=== PATIENT | male | born 1990 | race African-American/Black ===

== ENCOUNTER 2022-08-22 14:11 | Emergency (ER) | payer OTHER, SELFPAY ==
[2022-08-22 14:16] VITALS: BP 130/76; PULSE 86; RESP 18; TEMP 37.2; O2SAT 100
--- NOTE | 2022-08-22 15:09 | ED.URI ---
HPI - URI/Sore Throat General Chief Complaint: Upper Respiratory Infection Stated Complaint: Sore Throat Source: patient and RN notes reviewed History of Present Illness HPI Narrative: 31-year-old male presents urgent care with complaints of sore throat times 2-3 days. Patient denies any ear pain, fevers, chills, vomiting, diarrhea, shortness of breath. Patient has been taking ibuprofen and Tylenol at home with moderate relief. Related Data Home Medications Medication Instructions Recorded Confirmed fluoxetine 20 mg capsule mg 08/22/22 trazodone 50 mg tablet mg 08/22/22 Allergies Allergy/AdvReac Type Severity Reaction Status Date / Time No Known Allergies Allergy Verified 08/22/22 14:59 Review of Systems Review of Systems: CONSTITUTIONAL: Denies fever, chills, or sweats. EYES: Denies visual changes, redness, or discharge. ENT: sore throat CARDIOVASCULAR: Denies chest pain, palpitations, or edema. RESPIRATORY: Denies cough or dyspnea. GASTROINTESTINAL: Denies abdominal pain, nausea, vomiting, or diarrhea. GENITOURINARY: Denies dysuria or hematuria. SKIN: Denies rash or itching. MUSCULOSKELETAL: Denies back pain, joint pain, or myalgia. NEUROLOGIC: Denies headache, numbness, or weakness. PMFSH Comments At the time of my signature, I reviewed and agree with the nursing past medical, surgical, social, and family history. There is no relevant family history pertinent to the patient complaint. Exam Narrative: GENERAL: This is a well-nourished, well-developed patient, in no apparent distress. HEAD: normocephalic, atraumatic. EYES: PERRL. Sclera clear/white. Vision is grossly intact. EARS: External ears normal, auditory canals clear and without drainage, TMs normal without perforation. Hearing grossly intact. NOSE: External nose normal with no obvious nasal discharge, nares without redness, no rhinorrhea. THROAT: Mucous membranes moist, posterior pharynx erythemic with white exudate. Tonsils 2+ bilaterally.. NECK: Neck supple, non-tender without lymphadenopathy, masses or thyromegaly. CARDIOVASCULAR: Regular rate and rhythm without murmurs, gallops, or rubs. RESPIRATORY: Clear to auscultation. Breath sounds equal bilaterally. No wheezes, rales, or rhonchi. GASTROINTESTINAL: Abdomen soft, non-tender, nondistended. Bowel sounds are active. No hepato-splenomegaly, or palpable masses. No guarding. SKIN: warm, intact with no suspicious lesions or rash, good texture and turgor. NEURO: awake, alert, and oriented to person, place and time. There were no obvious focal neurologic abnormalities. Course Course Level of Care: Express Care Visit Vital Signs Vital signs: Vital Signs Temperature 98.9 F 08/22/22 14:16 Pulse Rate 86 08/22/22 14:16 Respiratory Rate 18 08/22/22 14:16 Blood Pressure 130/76 08/22/22 14:16 Pulse Oximetry 100 08/22/22 14:16 Oxygen Delivery Room Air 08/22/22 14:16 Temperature 98.9 F 08/22/22 14:16 Pulse Rate 86 08/22/22 14:16 Respiratory Rate 18 08/22/22 14:16 Blood Pressure 130/76 08/22/22 14:16 Pulse Oximetry 100 08/22/22 14:16 Oxygen Delivery Room Air 08/22/22 14:16 Reviewed MDM - URI/Sore Throat MDM Narrative Medical decision making narrative: After 24 hours on antibiotics throw tooth brush away and start using a new one. Do not share drinks. Take Motrin alternating with Tylenol for pain and fever alternating every 4 hours. Increase fluids, avoid caffeine. Follow up with Primary provider if not getting better this week Differential Diagnosis Differential diagnosis: Likely upper respiratory infection, viral infection and pharyngitis Lab Data Attestation: I reviewed the patient's lab results. Labs: Strep Screen Positive Group A Strep *(Reference Range: Negative)* Critical Care Time Critical Care Time Critical Care Time: No Discharge Plan Discharge Clinical Impression:
== END 2022-08-22 15:10 | disposition home or self-care (01) ==
PROVIDERS: Emergency Provider Nurse Practitioner Family; PCP Emergency Medicine
DX: J02.0 Streptococcal pharyngitis (principal)
CPT/HCPCS: 87880; 99213; G0463

== ENCOUNTER 2022-11-05 09:11 | Emergency (ER) | payer OTHER, SELFPAY ==
[2022-11-05 09:24] VITALS: BP 125/77; PULSE 91; RESP 20; TEMP 36.6; O2SAT 98
--- NOTE | 2022-11-05 10:10 | ED.GENADULT ---
HPI - General Adult General Chief complaint: Upper Respiratory Infection Stated complaint: cold/flu Time Seen by Provider: 11/05/22 10:10 Source: patient, RN notes reviewed and old records reviewed Mode of arrival: ambulatory Limitations: no limitations History of Present Illness HPI narrative: 32-year-old male presents to [facility] care with complaints of body aches, headache, sore throat since Saturday, reports that he is unsure if fevers. Patient states that he had strep throat in August and was treated with antibiotics. Patient reports that he did home COVID test which was negative. He reports that he has been taking OTC Mucinex and Ibuprofen for his symptoms. Patient rates his headache as 8/10, denies any visual disturbances or any nausea or vomiting. MD complaint: sore throat, body aches, headaches Onset (ago): day(s) (3-4 days) Severity scale (1-10): 8 Treatments prior to arrival: NSAID and other (Mucinex cough and congestion) Related Data Home Medications Medication Instructions Recorded Confirmed fluoxetine 20 mg capsule mg 08/22/22 trazodone 50 mg tablet mg 08/22/22 Allergies Allergy/AdvReac Type Severity Reaction Status Date / Time No Known Allergies Allergy Verified 08/22/22 14:59 Review of Systems Review of Systems: CONSTITUTIONAL: Reports malaise,no chills, sweats, unknown if fever. EYES: Denies visual changes, redness, or discharge. ENT: Reports rhinorrhea, congestion, no sinus pain,no otalgia,positive for sore throat. CARDIOVASCULAR: Denies chest pain, palpitations, or edema. RESPIRATORY: Reports cough.? Denies dyspnea. GASTROINTESTINAL: Denies abdominal pain, nausea, vomiting, diarrhea SKIN: Denies rash or itching. MUSCULOSKELETAL: Reports myalgia. NEUROLOGIC:Reports headache. All systems reviewed & are unremarkable except as noted in HPI and below PMFSH Past Medical History Medical History (Updated 11/06/22 @ 08:30 by Lorelei Palencia NP) Anxiety Sleeping difficulty Strep throat Social History Social History (Updated 11/06/22 @ 08:24 by Lorelei Palencia NP) Smoking status: Current every day smoker Tobacco type: cigarettes and e-cigarettes/vaping Alcohol intake: unknown Substance use type: does not use Living arrangements: with family Gender identity (if verbalized by the patient): Male Comments At time of signature, agree with nursing past medical, surgical, social and family history. There is no relevant family history pertinent to the presenting complaint Exam Narrative: GENERAL: Well-appearing, well-nourished, and in no acute distress. HEAD: Normocephalic EYES: PERRLA, conjunctivae clear ENT: Nares clear, turbinates edematous and erythematous, clear discharge. Mucous membranes moist. TM pearly alexander with dull light reflex bilaterally; no tragal tenderness. Oropharynx erythematous without lesions. Tonsils red enlarged and without exudate, no drooling, no hoarseness, no trismus, uvula midline. NECK: Supple. lymphadenopathy CHEST: Clear to auscultation, breath sounds equal. No wheezing, rhonchi, rales, or stridor. No respiratory distress, speaks in full sentences.dry cough, SAO2 98% on room air HEART: Regular rate and rhythm. No murmur heard. SKIN: Warm, dry, no rash. NEURO: Alert and oriented x3. PSYCH: Normal mood and affect Course Course Emergency Course: Patient is aware of diagnosis, understands and agrees to treatment plan.? Anticipatory guidance given.? Patient agrees to follow-up as directed and is aware of reasons to seek care at the emergency department. Portions of this record may have been created with voice recognition software Level of Care: Express Care Visit Vital Signs Vital signs: Vital Signs Temperature 36.6 C 11/05/22 09:24 Pulse Rate 91 11/05/22 09:24 Respiratory Rate 20 11/05/22 09:24 Blood Pressure 125/77 11/05/22 09:24 Pulse Oximetry 98 11/05/22 09:24 Oxygen Delivery Room Air
== END 2022-11-05 10:27 | disposition home or self-care (01) ==
PROVIDERS: Emergency Provider Registered Nurse
DX: J03.90 Acute tonsillitis, unspecified (principal); F17.210 Nicotine dependence, cigarettes, uncomplicated; F17.290 Nicotine dependence, other tobacco product, uncomplicated; F41.9 Anxiety disorder, unspecified
CPT/HCPCS: 87081; 87804; 87880; 99213; G0463

== ENCOUNTER 2025-02-25 10:28 | Emergency (ER) | payer SELFPAY ==
--- NOTE | 2025-02-25 10:29 | ED_ITS ---
HPI - URI/Sore Throat General Chief Complaint: Upper Respiratory Infection Stated Complaint: throat/congestion Time Seen by Provider: 02/25/25 10:29 Source: patient Mode of arrival: ambulatory Limitations: no limitations History of Present Illness HPI Narrative: Yves is a 34-year-old male patient presenting to the clinic today with complaints of sore throat, cough, body aches, chills, and nasal congestion x4 days. No known fever. States he is having difficulty breathing due to nasal congestion. Denies any chest pain. Has taken ibuprofen and Mucinex for his symptoms. Rates his pain 02/07. Related Data Home Medications ?Medication ?Instructions ?Recorded ?Confirmed ?Last Taken ?Type fluoxetine 20 mg capsule mg 08/22/22 Unknown History trazodone 50 mg tablet mg 08/22/22 Unknown History Allergies Allergy/AdvReac Type Severity Reaction Status Date / Time No Known Allergies Allergy Verified 02/25/25 10:32 Review of Systems Review of Systems: Pertinent positives per HPI. Patient denies any fever, chills, rash, headache, visual changes, dizziness, shortness of breath, chest pain, palpitations, nausea, vomiting, diarrhea, constipation, abdominal pain, or any urinary issues. PMFSH Past Medical History Medical History Sleeping difficulty Anxiety Strep throat Social History Social History Smoking status: Current every day smoker Tobacco type: cigarettes and e-cigarettes/vaping Alcohol intake: unknown Substance use type: does not use Living arrangements: with family Gender identity (if verbalized by the patient): Male Comments At the time of my signature, I reviewed and agree with the nursing past medical, surgical, social, and family history. There is no relevant family history pertinent to the patient complaint. Exam Narrative: General: Well-developed, well nourished, in no apparent distress Head: Normocephalic, atraumatic Eyes: Pupils equally round and reactive to light bilaterally, EOM intact, sclera and conjunctive clear, no discharge, lids normal Ears: TMs intact and congested, ear canals clear, no drainage, grossly hearing normal. Nose: Nares patent, clear nasal discharge, no inflammation, no sinus tenderness. Mouth: Oral pharynx red with bilateral tonsillar enlargement without exudate without lesions or masses, good dentition, MMM. Neck: Supple, trachea midline, mild enlargement of anterior cervical nodes, no thyroid masses or goiter palpable. Cardio: Regular rate and rhythm, s1 and s2 normal, no murmur appreciated. Resp: Clear to auscultation bilaterally, no rhonchi, rales, wheezing or rubs Course Course Emergency Course: Portions of this record may have been created with voice recognition software. Level of Care: Express Care Visit Vital Signs Vital signs: Vital Signs Temperature 36.7 C 02/25/25 10:43 Pulse Rate 64 02/25/25 10:43 Respiratory Rate 18 02/25/25 10:43 Blood Pressure 138/92 H 02/25/25 10:43 Pulse Oximetry 97 02/25/25 10:43 Oxygen Delivery Room Air 02/25/25 10:43 Temperature 36.7 C 02/25/25 10:43 Pulse Rate 64 02/25/25 10:43 Respiratory Rate 18 02/25/25 10:43 Blood Pressure 138/92 H 02/25/25 10:43 Pulse Oximetry 97 02/25/25 10:43 Oxygen Delivery Room Air 02/25/25 10:43 Vital signs reviewed MDM - URI/Sore Throat MDM Narrative Medical decision making narrative: At the time of visit patient is resting comfortably on the exam table. Patient appears to be nontoxic. Complaints of sore throat, cough, body aches, chills, and nasal congestion x4 days. No known fever. States he is having difficulty breathing due to nasal congestion. Denies any chest pain. Has taken ibuprofen and Mucinex for his symptoms. Rates his pain 8/10. On exam patient has bilateral ear congestion, clear nasal drainage with mild nasal congestion, red oropharynx with bilateral tonsillar large but without exudate with mild enlargement of cervical lymphadenopathy anteriorly. Strep, COVID, and influenza testing was ordered. Labs: Strep, COVID, and influenza testing was performed. All testing was negative. We will send strep for culture. Plan: I suspect patient has URI/pharyngitis/viral syndrome. Work note was given. Supportive measures were discussed with the patient and they voiced understanding discharge instructions and agrees to treatment plan. Return precautions reviewed Differential Diagnosis Differential diagnosis: Likely upper respiratory infection, otitis media, sinusitis, viral infection, bronchitis, influenza, pharyngitis and other (COVID) Discharge Plan Discharge Clinical Impression: Viral infection Upper respiratory infection Qualifiers: URI type: unspecified URI Qualified Code(s): J06.9 - Acute upper respiratory infection, unspecified Pharyngitis Qualifiers: Pharyngitis/tonsillitis etiology: unspecified etiology Qualified Code(s): J02.9 - Acute pharyngitis, unspecified Patient Disposition: Home Condition: Stable Instructions: Antibiotic Form, Pharyngitis (ED), Viral Syndrome (ED), Cold Symptoms (ED) Additional Instructions: COVID, flu, and strep test were all negative in the clinic today. We will send strep for culture if this comes back positive we will contact him place you on antibiotics at that time. May take DayQuil/NyQuil for cold/flu symptoms Increase fluids and stay well hydrated May take Tylenol or motrin as directed on bottle for pain/fever May use Flonase 1 spray in each nare daily May take OTC antihistamines such as Zyrtec or Claritin daily as directed on bottle May apply Vicks vapor rub to chest to open sinuses Sinus rinses for congestion Cepacol spray, cough drops, throat lozenges, warm tea with honey/lemon, gargle salt water to soothe throat BRAT diet for diarrhea Clear liquids x 24 hours then advance as tolerated for nausea/vomiting Go to the ED if you develop a worsening in your condition- high fever not controlled by Tylenol or Motrin, dehydration, weakness, lethargy, shortness of breath, or chest pain. Follow up with your PCP in 3-5 days if symptoms persist. Patient Language: Icelandic Prescriptions: No Action trazodone 50 mg tablet fluoxetine 20 mg capsule Follow-up/Referrals: UNKNOWN,DOCTOR [Non-Staff] Stand Alone Forms: Work/School Release IP Time of Disposition: 11:03 Quality NIHSS Nursing Documentation ED NIHSS nursing documentation: reviewed/agree
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
--- OUTSIDE RECORDS SUMMARY | 2025-02-25 10:32 | XMS_ITS | Clinical Summary ---
Author Organization [facility] Address [address] [place] [address] Care Team Providers Care Manual Lathe Operator Name Role Phone No, Physician Primary Care Provider Allergies No known active allergies Medications ibuprofen (ADVIL,MOTRIN) 800 mg tablet Take 1 tablet (800 mg total) by mouth 3 (three) times a day. 21 tablet 02/22/2018 Active ciprofloxacin (CIPRO) 500 mg tabletIndicatio ns:Abdominal/Pe lvic Infection Take 1 tablet (500 mg total) by mouth 2 (two) times a day 14 tablet 11/14/2020 Active dicyclomine (BENTYL) 20 mg tablet Take 1 tablet (20 mg total) by mouth 2 (two) times a day 20 tablet 11/14/2020 Active azithromycin (ZITHROMAX) 250 mg tablet Take 1 tablet (250 mg total) by mouth daily Take first 2 tablets together, then 1 every day until finished. 6 tablet 06/24/2022 Active Active Problems No known active problems Medical History Medical History Date Comments Influenza A 06/11/2022 Pneumonia 06/23/2022 RUL Vapes nicotine containing substance GERD (gastroesophageal reflux disease) Back pain Family History Medical History Relation Name Comments Diabetes Other 1 Family history of diabetes; Other Other 2 Family history of high blood pressure; Other Other 3 Family history of thyroid problems; Relation Name Status Comments Other 1 Other 2 Other 3 Social History Tobacco Use Types Packs/Day Years Used Date Smoking Tobacco: Every Day Smokeless Tobacco: Never Tobacco Cessation:Ready to Q uit: Not Asked; Counseling Given: Not Answered Alcohol Use Standard Drinks/Week Comments No 0 (1 standard drink = 0.6 oz pur e alcohol) Personal Safety Answer Date Recorded Getting School Help Needed Not on file 08/25 Sex and Gender Information Value Date Recorded Sex Assigned at Not on file Legal Sex Male 6:19 PM [employer] Gender Identity Not on file Sexual Orientation Not on file Obstetrics History Last Filed Vital Signs Vital Sign Reading Time Taken Comments Blood Pressure 97/71 06/23/2022 9:19 PM [employer] Pulse 117 06/23/2022 9:19 PM [employer] Temperature 39.7 C (103.4 F) 06/23/2022 9:19 PM [employer] Respiratory Rate 20 06/23/2022 9:19 PM [employer] Oxygen Saturation 95% 06/23/2022 9:19 PM [employer] Inhaled Oxygen Concentration - - Weight 93 kg (205 lb) 06/23/2022 9:19 PM [employer] Height 182.9 cm (6') 06/23/2022 9:19 PM [employer] Body Mass Index 27.8 06/23/2022 9:19 PM [employer] Plan of Treatment Health Maintenance Due Date Last Done Comments Depression Screening 1990 Hepatitis C Screening 1990 Varicella Vaccines (1 of 2 - 13+ 2-dose series) 2003 Hepatitis B Screening 2008 Regular Well Visit/Exam 18-64 2008 Pneumococcal vaccine <65 (1 of 2 - PCV) 2009 HPV Vaccines (1 - 3-dose SCDM series) 2017 Influenza Vaccine (#1) 2025 DTaP/Tdap/Td Vaccine (2 - Td or Tdap) 04/27/2031 Insurance [place] [employer] [facility] Care Teams Manual Lathe Operator Relationship Specialty Start Date End Date No, Physician PCP - General 02/22/18
[2025-02-25 10:43] VITALS: BP 138/92; PULSE 64; RESP 18; TEMP 36.7; O2SAT 97
[2025-02-25 11:06] LABS: EDCOVIDSCREEN Negative (Negative); EDINFLUASCREEN Negative (Negative); EDINFLUBSCREEN Negative (Negative); EDSTREPNEGPOS1 Negative (Negative)
== END 2025-02-25 11:10 | disposition home or self-care (01) ==
PROVIDERS: Emergency Provider Nurse Practitioner Family
DX: B34.9 Viral infection, unspecified (principal); J06.9 Acute upper respiratory infection, unspecified; J02.9 Acute pharyngitis, unspecified; Z20.822 Contact with and (suspected) exposure to COVID-19; F17.210 Nicotine dependence, cigarettes, uncomplicated; F17.290 Nicotine dependence, other tobacco product, uncomplicated; F41.9 Anxiety disorder, unspecified
CPT/HCPCS: 87081; 87426; 87804; 87880; 99213; G0463